=== PATIENT | male | born 1970 | race Caucasian/White ===

== ENCOUNTER 2022-04-04 06:10 | Observation (INO) ==
--- NOTE | 2022-03-20 08:44 | PAT Medication Instructions ---
Medication Instructions Date of Service March 20, 2022 Home Medications lisinopril 40 mg tablet 10 mg PO QAM pantoprazole 40 mg tablet,delayed release 40 mg PO QAM DO NOT take the morning of surgery lisinopril 40 mg tablet 10 mg PO QAM Take morning of surgery With a small sip of water, OTHERWISE NOTHING TO EAT OR DRINK AFTER MIDNIGHT: pantoprazole 40 mg tablet,delayed release 40 mg PO QAM Other Notes If you have any questions please call us at [phone] or [phone] or [phone] or [phone]
--- NOTE | 2022-03-21 13:22 | Anesthesiology Consultation ---
Date of Service March 21, 2022 Assessment & Plan (1) Encounter for pre-operative examination: - COVID screening: Per assessment on 03/21/2022: Travel screen negative, no known COVID-19 positive contacts or current COVID-19 related symptoms in past 2 weeks. Pt vaccinated. Surgeon arranging preop COVID testing, scheduled 03/30/2022. Awaiting results. Chart Review Chart Review: Acceptable Risk for Surgery and Patient seen in Pre Admission Testing Teaching & Discussion Pre-Anesthesia Teaching/Discussion Notes: Instructed NPO after midnight before surgery, except medications with 15 cc of water. Medication instructions provided according to the PAT guidelines. History Surgery Operation Date: 04/04/22 10:05 Proposed Procedures p C7-T1 Anterior Cervical Discectomy Fusion, Spinal Cord Monitoring - Sacha Barraza DO Height/Weight Height: 5 ft 10 in Weight: 94.4 kg Allergies Allergy/AdvReac Type Severity Reaction Status Date / Time No Known Allergies Allergy Unknown Verified 03/20/22 07:59 Medications Home Medications Medication Instructions Recorded Confirmed Last Taken lisinopril 40 mg tablet 10 mg PO QAM 03/20/22 03/20/22 Unknown pantoprazole 40 mg tablet,delayed 40 mg PO QAM 03/20/22 03/20/22 Unknown release Past Medical History Medical History (Updated 03/21/22 @ 13:39 by Alda Rahseed PA-C) GERD (gastroesophageal reflux disease) controlled, stable per pt Hypertension controlled, stable per pt Patient denies h/o stroke, seizures, heart attack, heart failure, DM, blood clots or blood transfusions. Exercise / Class Metabolic Activity II 4-5 Yardwork/Stairs/Walk up hill (denies CP or SOB with 1 FOS) Past Family History Family History Mother Breast cancer Past Surgical History Surgical History Hx of discectomy 2005 [facility] Past Anesthesia History No Hx of Anesthesia Complications and No Family Hx of Anesthesia Complications History of PONV No Hx of PONV and No Hx of Motion Sickness Social History Smoking Status: Never smoker Do You Dip or Chew Tobacco: No Hx Alcohol Use: Yes Alcohol type: beer alcohol intake frequency: 0-2 drinks per day (2-3 drinks daily) Hx Substance Use: No substance use type: does not use Review of Systems Snoring, denies witnessed apneas. Patient denies chest pain, shortness of breath, dyspnea on exertion, fever, chills, cough, wheezing, or palpitations. Physical Exam Vital Signs Vitals BP 139/90 P 76 TEMP 98.6 SP02 96% on RA RESP 17 Physical Full cervical extension range of motion without pain TMD 3.5 finger breaths Mallampati Score 3 Dentition: intact, several missing teeth left upper side, several caps/crowns- none in front; denies loose or chipped teeth, implants or bridges Lungs: normal respiratory effort. Clear throughout to auscultation, no adventitious breath sounds Cardiac: regular rate and rhythm, no murmurs noted Carotid arteries: negative bruit bilat Lab Results Anesthesia Preop Results Results Anesthesia Widget: WBC 5.19 K/uL (4.8-10.8) 03/21/22 Hgb 14.4 g/dL (14.0-18.0) 03/21/22 Hct 41.4 % (42-52) L 03/21/22 Plt 241 K/uL (130-400) 03/21/22 Na 141 mmol/L (136-145) 03/21/22 K 4.0 mmol/L (3.5-5.1) 03/21/22 Cl 107 mmol/L (98-107) 03/21/22 CO2 28 mmol/L (21-32) 03/21/22 BUN 14 mg/dl (6-23) 03/21/22 Creat 0.97 mg/dl (0.6-1.4) 03/21/22 Glucose Level 104 mg/dl (70-99(Fasting)) H 03/21/22 PT 10.5 Seconds (9.0-12.0) 03/21/22 PTT 26.4 Seconds (21.0-31.0) 03/21/22 INR 1.0 (0.9-1.1) 03/21/22 Urine Color Yellow 03/21/22 Urine Appearance Clear (Clear) 03/21/22 Urine pH 6.5 (4.5-7.5) 03/21/22 Urine Specific [place] 1.011 (1.000-1.030) 03/21/22 Urine Protein Negative (Negative) 03/21/22 Urine Glucose (UA) Negative (Negative) 03/21/22 Urine Ketones Negative (Negative) 03/21/22 Urine Blood Negative (Negative) 03/21/22 Urine Nitrite Negative (Negative) 03/21/22 Urine Bilirubin Negative (Negative) 03/21/22 Urine Urobilinogen Negative (Negative) 03/21/22 Urine Leukocyte Esterase Negative (Negative) 03/21/22 Blood Type AB Positive 03/21/22 Antibody Screen NEGATIVE 03/21/22 Testing Electrocardiogram Date: 03/21/22 NSR, rate 68 bpm Rightward axis RBBB Chest X-Ray Date: 03/21/22 The cardiomediastinal and hilar silhouettes are within normal limits. There is no pneumothorax, pleural effusion, airspace consolidation or overt pulmonary edema. The bones of the chest appear grossly intact. Cervical spinal fusion hardware. IMPRESSION: No acute process.
[~2022-04-04 06:10] MED LIST: ACETAMINOPHEN 500 MG TAB PO SCH; CeleBREX 200 MG CAP PO SCH; GABAPENTIN 900 MG DOSE PO SCH; LR 15ML/HR IV SCH; ceFAZolin 2000MG 2,000 MG/15 ML SYR IV SCH
[2022-04-04] MEDS ORDERED: PROPOFOL IV EMULSION 10 MG/ML 20 ML VIAL IV ONE (06:55)
[2022-04-04] MEDS ORDERED: DEXAMETHASONE SOD INJ 4 MG/ML VIAL ONE (06:55)
[2022-04-04] MEDS ORDERED: fentaNYL citrate 100 MCG/2 ML VIAL ONE (06:55)
[2022-04-04] MEDS ORDERED: ONDANSETRON INJ 2 MG/ML 2 ML VIAL ONE (06:55)
[2022-04-04] MEDS ORDERED: LIDOCAINE 2% 2 ML VIAL/AMP(20MG/ML) INFIL ONE (06:55)
[2022-04-04] MEDS ORDERED: SUCCINYLCHOLINE CHLORIDE 20 MG/ML 10 ML VIAL IV ONE (06:55)
[2022-04-04] MEDS ORDERED: MIDAZOLAM HCL 1 MG/ML 2ML VIAL ONE (06:55)
[2022-04-04] MEDS ORDERED: REMIFENTANIL HCL 1 MG VIAL ONE (07:16)
[2022-04-04] MEDS ORDERED: LABETALOL HCL IV 5 MG/ML 20ML IV PRN (07:27)
[2022-04-04] MEDS ORDERED: ONDANSETRON INJ 2 MG/ML 2 ML VIAL IV PRN ×2 (07:27→11:03)
[2022-04-04] MEDS ORDERED: PROMETHAZINE HCL 12.5 MG in SODIUM CHLORIDE 0.9% 50 ML IV PRN ×2 (07:27→11:03)
[2022-04-04] MEDS ORDERED: ATROPINE SULFATE 0.1 MG/ML 10ML SYR IV PRN (07:27)
--- NOTE | 2022-04-04 07:31 | History & Physical Bridge Note ---
Date of Service April 04, 2022 History & Physical Bridge Note I have examined the patient, reviewed the History & Physical and in the interval since the performance of the History & Physical I have noted the following changes of clinical significance: no changes noted
--- NOTE | 2022-04-04 07:32 | History & Physical Report ---
Date of Service April 04, 2022 Assessment & Plan (1) Cervical stenosis of spinal canal: Plan: C7-T1 anterior cervical discectomy and fusion with hardware removal History of Present Illness Chief Complaint: Neck and arm pain Primary Care Provider: Rachel Gutierrez MD This is a 51-year-old male who presents with worsening neck and arm symptoms after failing course of nonoperative care is here for surgical intervention. Allergies Allergy/AdvReac Type Severity Reaction Status Date / Time No Known Allergies Allergy Unknown Verified 04/04/22 06:34 Home Medications Medication Instructions Recorded Confirmed Type lisinopril 40 mg tablet 10 mg PO QAM 03/20/22 04/04/22 History pantoprazole 40 mg tablet,delayed 40 mg PO QAM 03/20/22 04/04/22 History release acetaminophen 325 mg capsule 650 mg PO QID PRN 04/04/22 04/04/22 History (Tylenol) Past Med/Surg History Medical History (Updated 04/04/22 @ 07:32 by Sacha Barraza DO) GERD (gastroesophageal reflux disease) controlled, stable per pt Hypertension controlled, stable per pt Surgical History Hx of discectomy 2005 [facility] Family History Mother Breast cancer Social History Smoking Status: Never smoker Second Hand Exposure: No; Do You Dip or Chew Tobacco: No; Tobacco Cessation Education Requested by Patient: No Hx Alcohol Use: Yes Alcohol type: beer Hx Substance Use: No Preferred Language: [place] Communication Ability: Effective Typing Pool Supervisor Required: No Beliefs That Will Affect Care: None Current Living Situation: Spouse Other Information That Helps Us Care for You: No Feels Safe at Home: Yes Safety Concerns: Feels Safe At This Time Physical Exam Physical Exam: Patient is alert and oriented Heart regular rhythm Lungs clear Results & Data Results & Data ([facility]) Vital Signs (Past 12 Hours) Vital Signs Temp Pulse Resp BP Pulse Ox 04/04/22 06:36 36.7 C 65 20 141/89 H 98
[2022-04-04] MEDS ORDERED: GLYCOPYRROLATE 0.2 MG/ML VIAL ONE (08:58)
[2022-04-04] MEDS ORDERED: NEOSTIGMINE METHYLSULFATE 1 MG/ML 10ML VIAL ONE (08:58)
[2022-04-04] MEDS ORDERED: FLOSEAL HEMOSTATIC MATRIX 10ML TOP ONE (09:06)
--- NOTE | 2022-04-04 09:09 | Operative Report ---
Post Operative Report Pre & Post Diagnosis Operation Date: 04/04/22 07:45 Pre-Op Diagnosis: Cervical spinal stenosis with radiculopathy Post-Op Diagnosis: Same I identified the patient and participated in the time-out.: Yes Procedure Operation Date: 04/04/22 07:45 Actual Procedures #1 hardware removal C6-C7. #2 exploration of fusion C6-C7. #3 anterior cervical discectomy with bilateral foraminotomies C7-T1. #4 anterior cervical arthrodesis C7-T1. #5 placement of 8 mm spiral cage with I factor C7 and T1. #6 application of sandoval plate and screws across C7-T1. Surgeon Sacha Barraza, [employer] Supervisor Lisa Fowler Estimated Blood Loss 10 Findings Consistent with Post-Op Diagnosis Specimens None Indications This is a 51-year-old male presents with above-mentioned diagnosis after failing course of nonoperative care safely. Procedure. Description of Procedure Patient met with identified informed consent obtained. Patient was then taken to the operative suite underwent patient placed in supine position injectable head Sow hendrickson. All bony prominences well-padded eyes inspected to ensure no external pressure placed upon the. This point the anterior cervical spine was prepped and draped no sterile fashion. The assistance of fluoroscopy identified the C7 vertebral body. A longitudinal incision was then placed along the right anterior aspect of the cervical spine overlying this region. Blunt dissection with assistance of bipolar electrocautery was formed until exposing anterior cervical spine from see 6 to T1. I then removed the anterior cervical plate at C6-C7. I explored the fusion mass noted to be mature and intact. I then performed a complete discectomy of C 7 T1 L to the uncovertebral joints bilaterally. Harleigh distracting pins were utilized to assist in visualization. I removed all posterior annular fibers longitudinal ligament bilateral foraminotomies performed. Large disc herniation was noted in the left neuroforamen and removed. Endplates burred to subcortical bleeding bone and 8 mm spiral cage filled with I factor tapped in position. Distracting apparatus was removed and 5 complete and screws applied with the assistance of fluoroscopy. The incision was then copiously irrigated explored to ensure no damage to surrounding structures or remaining bleeding. 10 round REJI drain then inserted. The incision was closed with 1 Vicryl the fascia 2-0 Vicryl subcutaneously and 4 Monocryl for final skin closure. Steri-Strip sterile dressings placed. Patient waken taken PACU stable condition. Please note spinal cord monitoring was utilized at the procedure no changes noted. Lastly Lisa Fowler was present out the entire surgeon while the patient positioning complex portions of the surgery and final skin closure. I attest to the content of the Intraoperative Record and any orders documented therein. Any exceptions are noted below.
[2022-04-04] MEDS: HYDROmorphone INJ 1 MG/ML SYRINGE IV PRN ×10 (09:33→18:21)
--- NOTE | 2022-04-04 09:44 | Fluoroscopy Report ---
FL cervical 2-3V HISTORY: 51 years-old Male C7-T1 ACDF COMPARISON: Cervical spine MRI 02/20/2022 TECHNIQUE: 4 spot fluoroscopic images of the cervical spine were obtained utilizing 21.1 seconds fluo roscopy time FINDINGS: Endotracheal tube is noted. The study is limited secondary to positioning. Radiopaque surgical sponge or sponges are noted anteriorly. Anterior plate and screw fusion hardware is redemonstrated at C6-C7 on the initial images. The last image demonstrates fusion hardware at what appears to be the C7-T1 l evel, however the exact level of the fusion is not definitive based on the suboptimal lateral views. Correlation with follow-up cervical spine radiographs recommended. Note that the images were reviewed after completion of the surgery. IMPRESSION: Fluoroscopic assistance as above. ACT 112: Negative or not required by law. The above report was generated using voice recognition software. It may contain grammatical, syntax o r spelling errors. Electronically signed by: Nic Garzon M.D. 04/04/2022 9:43 AM
--- NOTE | 2022-04-04 10:20 | Anesthesiology Progress Note ---
Date of Service April 04, 2022 Anesthesia Post Procedure Vital Signs Vital Signs: Temp Pulse Pulse Resp BP Pulse Ox 04/04/22 10:15 36.4 C L 55 L 18 137/96 100 04/04/22 10:05 58 L 16 141/96 H 100 04/04/22 09:55 55 L 16 153/105 H 100 04/04/22 09:45 59 L 16 146/96 H 100 04/04/22 09:35 69 18 116/67 100 04/04/22 09:26 36.3 C L 77 18 120/81 92 04/04/22 06:36 36.7 C 65 20 141/89 H 98 Pain Intensity Left Arm: Pain Intensity: 0 Transfer of Care Handoff Completed per policy Notes Mental Status: alert / awake / arousable Patient Amnestic to Procedure: Yes Nausea / Vomiting: adequately controlled Pain: adequately controlled Airway Patency, RR, SpO2: stable & adequate BP & HR: stable & adequate Hydration State: stable & adequate Anesthetic Complications: no major complications apparent
[2022-04-04] MEDS ORDERED: DO NOT ADMINISTER FLU VACCINE PRN (11:03)
[2022-04-04] MEDS ORDERED: DO NOT ADMINISTER PNEUMOCOCCAL VACCINE PRN (11:03)
[2022-04-04] MEDS ORDERED: SOD PHOSPHATE/SOD BIPHOSPHATE ENEMA 132 ML BTL PR PRN (11:03)
[2022-04-04] MEDS ORDERED: ONDANSETRON 4 MG OD TAB PO PRN (11:03)
[2022-04-04] MEDS ORDERED: HYDROmorphone INJ 0.5 MG/0.5 ML SYR IV PRN (11:03)
[2022-04-04] MEDS ORDERED: traMADol HCL 50 MG TABLET PO PRN (11:03)
[2022-04-04] MEDS ORDERED: hydrOXYzine HCl 25 MG TAB PO PRN (11:03)
[2022-04-04] MEDS ORDERED: MAGNESIUM HYDROXIDE SUSP 30 ML UDC PO PRN (11:03)
[2022-04-04] MEDS ORDERED: dexAMETHasone 8 MG in SYRINGE 0 ML IV PRN (11:03)
[2022-04-04] MEDS ORDERED: METOCLOPRAMIDE HCL INJ 5 MG/ML 2 ML VIAL IV PRN (11:03)
[2022-04-04] MEDS ORDERED: LORazepam 0.5 MG TAB PO PRN (11:03)
[2022-04-04] MEDS ORDERED: FAMOTIDINE 20 MG TAB PO PRN (11:03)
[2022-04-04] MEDS ORDERED: ACETAMINOPHEN 500 MG TAB PO PRN (11:03)
[2022-04-04] MEDS ORDERED: bisacodyL 10 MG SUPP PR PRN (11:03)
[2022-04-04] MEDS ORDERED: ACETAMINOPHEN 1,000 MG/100 ML VIAL IV PRN (11:03)
[2022-04-04] MEDS ORDERED: diphenhydrAMINE Capsule 25 MG CAP PO PRN (11:03)
[2022-04-04] MEDS ORDERED: ALUMINUM/MAGNESIUM SUSP 30 ML UDC PO PRN (11:03)
[2022-04-04] MEDS ORDERED: RACEPINEPHRINE 2.25% NEBU SOLN 0.5 ML VIAL INH PRN (11:03)
[2022-04-04] MEDS ORDERED: LORazepam 0.5 MG in SYRINGE 0.25 ML IV PRN (11:03)
[2022-04-04] MEDS ORDERED: NALOXONE HCL 0.4 MG/1 ML VIAL/CARP IV PRN (11:03)
[2022-04-04] MEDS: LACTATED RINGER'S 1,000 ML IV SCH ×3 (11:24→21:52)
[2022-04-04] MEDS: ceFAZolin 2000MG 2,000 MG/15 ML SYR IV SCH ×2 (14:54→22:25)
[2022-04-04] MEDS ORDERED: DOCUSATE SODIUM/SENNA 50/8.6MG TAB PO SCH (21:00)
[2022-04-04] MEDS: oxyCODONE HCL IR 5 MG TAB (IMMEDIATE RELEASE) PO PRN (22:25)
[2022-04-05] MEDS ORDERED: POLYETHYLENE (MIRALAX) 17 GM PACK PO SCH (06:00)
[2022-04-05] MEDS: oxyCODONE HCL IR 5 MG TAB (IMMEDIATE RELEASE) PO PRN (07:56)
--- NOTE | 2022-04-05 08:19 | Discharge Summary ---
Date of Service April 05, 2022 Admission HPI Per Admitting Provider This is a 51-year-old male who presents with worsening neck and arm symptoms after failing course of nonoperative care is here for surgical intervention. Principal Diagnosis Cervical spinal stenosis with radiculopathy Discharge Data Allergies Allergy/AdvReac Type Severity Reaction Status Date / Time No Known Allergies Allergy Unknown Verified 04/04/22 06:34 Procedures Performed Operation Date: 04/04/22 07:45 Actual Procedures p C7-T1 Anterior Cervical Discectomy and Fusion, Spinal Cord Monitoring(Not Applicable) - Sacha Barraza DO Ordered Studies 04/04/22 07:45 [place] cervical 2-3V Routine Hospital Course (1) Cervical stenosis of spinal canal: Patient underwent anterior cervical discectomy fusion tolerated this well was taken to the orthopedic for postoperative. Postop day 1 he was swallowing well no hoarseness. Arm symptoms markedly improved. Good strength testing. Patient was subsequently discharged home. Discharge orders instructions from the chart for further view. Total Time Total Time Spent Total Time Spent (In Minutes): 20 minutes Discharge Plan Discharge Items Patient Disposition: Home - Self-Care Reason For Visit: Spinal Stenosis, Cervical Region Discharge Diagnosis: Cervical spinal stenosis with radiculopathy Activity: As commented below Non-emergency contact: Primary Care Provider Call non-emergency contact if: you have any medication questions Follow-up/Referrals: Rachel Gutierrez MD [Primary Care Provider] - Diet: Regular Addtl Attending Provider Instructions: ACTIVITY RECOMMENDATIONS: SELF CARE INSTRUCTIONS AFTER CERVICAL FUSIONS 1. No smoking. Smoking drastically decreases the chance of a solid fusion. 2. No bending, lifting more than 5 pounds, or twisting (roll like a log when turning in bed). 3. You may shower 3 days after surgery. Thoroughly dry wound. Do not soak in the tub. 4. Cervical collar: Must be worn at all times including sleeping. You may remove the brace only to bath, eat and if you are sitting in a recliner. 5. Please walk as much as you can for exercise. Gradually increase the distance that you walk as your endurance increases. SPECIAL CARE INSTRUCTIONS: VERY IMPORTANT TO READ AND REVIEW A. Do not take any anti-inflammatory medications (i.e. Indocin, Advil, Aspirin, Naprosyn, Aleve, Motrin, etc.) as these may inhibit the chance of a solid fusion. Tylenol is okay to take. B. Your surgical incision has been closed with a cosmetic suture under the skin that will dissolve in about 6 weeks. In 14 days, you can use a pair of clean scissors and cut the suture that is left outside of the skin at the ends of your incision. C. Complications are uncommon, but please contact us if you have any signs or symptoms of: 1. wound infection (fever higher than 102.5 degrees F, redness, separation of wound, drainage, or increasing pain from the incision) 2. blood clots in legs (pain, swelling, redness and warmth in legs) 3. urinary tract infection (fever higher than 102.5 degrees, burning upon urination or increased frequency of urination) 4. nerve problems (inability to walk on your toes or heels, numbness, loss of bowel or bladder control) 5. any other symptoms that concern you. D. Please call the office at if you have any concerns or questions about your operation or recovery. MANAGING PAIN AFTER SPINAL SURGERY 1. Narcotic medication is intended for short-term use and will be provided for surgical pain. Surgical pain usually lasts for a period of 4-6 weeks. Narcotic medication includes Percocet, Vicodin, Darvocet, Tylenol #3 or Lortab. 2. Longer-term pain is more appropriately treated with non-narcotic medication such as Tylenol ES. 3. Muscle spasm is not appropriately treated with narcotics. Muscle relaxers such as Soma, Flexeril or Skelaxin can be used along with Tylenol ES. 4. Remember that we all live with some "aches and pains". This is not unusual or uncommon after an injury or as we get older. 5. We will provide appropriate medication within the normal guidelines of their prescribed use. We will also be very cautious and aware of potential abuse and extended duration of patients' medication needs. 6. Please allow 2-3 days to process refills. Prescriptions will not be mailed but must be picked up at the office. FOLLOW UP VISIT: Keep your scheduled follow-up appointment. Any questions, please call the office at . Pending Studies at Discharge: No Stand-Alone Forms: My [employer], Smoking Cessation Medications and DC Order Prescriptions: New tramadol 50 mg tablet 50 mg PO Q6H PRN (Reason: pain, moderate) Qty: 20 RF: 0 oxycodone 5 mg tablet 5 mg PO Q6H PRN (Reason: pain, severe) Qty: 20 RF: 0 Continued pantoprazole 40 mg Tablet,Delayed Release (Dr/Ec) 40 mg PO QAM RF: 0 lisinopril 40 mg Tablet 10 mg PO QAM RF: 0 acetaminophen [Tylenol] 325 mg Capsule 650 mg PO QID PRN (Reason: Pain) RF: 0 Discharge Orders: Discharge Order (Routine); Ordered 04/05/22 Ordered By: Sacha Barraza Admission Data Admit Date/Time: 04/04/22 09:12 Attending Provider: Sacha Barraza Admit Provider: Sacha Barraza Primary Care Provider: Rachel Gutierrez
[2022-04-05] MEDS ORDERED: dexAMETHasone 6 MG in SYRINGE 0 ML IV SCH (09:00)
[2022-04-05] MEDS ORDERED: lisinopril 10 MG TAB PO SCH (09:00)
[2022-04-05] MEDS ORDERED: PANTOprazole 40 MG TAB PO SCH (09:00)
== END 2022-04-05 12:33 | disposition home or self-care (01) ==
LOC: ASU 06:10 → 3E 09:12 → INTOOBSV 09:12